=== PATIENT | female | born 1975 | race African-American/Black ===

== ENCOUNTER 2017-07-10 19:03 | Emergency (ER) | payer OTHER ==
[~2017-07-10] VITALS: Ht 177.8 cm; Wt 139.2 kg
[2017-07-11] MEDS ORDERED: MOTRIN800 MG PO (01:17)
[2017-07-11] MEDS ORDERED: LIDODERM 5% P1 PATCH TD (01:17)
[2017-07-11] MEDS ORDERED: SKELAXIN800 MG PO (01:17)
[2017-07-11 01:33] VITALS: BP 143/90
== END 2017-07-11 01:38 | disposition home or self-care (01) ==
LOC: EME 19:03
DX: M54.9 Dorsalgia, unspecified (principal); M54.2 Cervicalgia; V49.40XA Driver injured in collision with unspecified motor vehicles in traffic accident, initial encounter; Y92.411 Interstate highway as the place of occurrence of the external cause
CPT/HCPCS: 70450; 72125; 99281; 99284; J1885

== ENCOUNTER 2017-07-12 23:16 | Emergency (ER) | payer OTHER ==
[~2017-07-12] VITALS: Ht 177.8 cm; Wt 140.4 kg
[~2017-07-12 23:16] MED LIST: LIDODERM 5% P1 PATCH TD; MOTRIN800 MG PO; SKELAXIN800 MG PO
[2017-07-13 00:06] LABS: HEMATOCRIT 37.2 % (36.0-46.0); HEMOGLOBIN 11.8 G/DL (11.9-15.5); MCH 25.4 PG (29.0-34.0); MCHC 31.7 G/DL (30.0-36.0); PLATELET COUNT 312 K/uL (156-360); RBC DIS.WIDTH-CV 14.5 % (11.8-14.6); RED BLOOD COUNT 4.65 M/uL (3.80-5.20)
[2017-07-13 00:12] LABS: CHLORIDE 107 mEq/L (99-109); POTASSIUM 3.6 mEq/L (3.7-5.4); SODIUM 138 mEq/L (136-147)
[2017-07-13 00:14] LABS: GLUCOSE 100 mg/dL (70-99)
[2017-07-13 00:18] LABS: CREATININE 0.8 mg/dL (0.6-1.3); GFR ESTIMATE (CALCULATED) > 59 mL/min/
[2017-07-13 00:19] LABS: UREA NITROGEN (BUN) 11 mg/dL (9-23)
[2017-07-13 00:26] LABS: TROP-I INTERPRETATION NEGATIVE; TROPONIN-I < 0.01 ng/mL (0.0-0.30)
[2017-07-13] MEDS ORDERED: NORCO 5/3251 TABLET PO (00:51)
[2017-07-13 01:07] VITALS: BP 154/82
== END 2017-07-13 01:37 | disposition home or self-care (01) ==
LOC: EME 23:16
DX: S43.401A Unspecified sprain of right shoulder joint, initial encounter (principal); R07.89 Other chest pain; V89.9XXD Person injured in unspecified vehicle accident, subsequent encounter
CPT/HCPCS: 71046; 80048; 84484; 85027; 93005; 99281; 99284